=== PATIENT | male | born 1990 | race Caucasian/White ===

== ENCOUNTER 2017-10-16 17:51 | Emergency (ER) | payer OTHER ==
[~2017-10-16] VITALS: Ht 182.9 cm; Wt 90.7 kg
[~2017-10-16 17:51] MED LIST: FLEXERIL10 MG PO
--- NOTE | 2017-10-16 19:01 | ED GI/GU/ABDOMINAL COMPLAINT ---
See Addendum History of Present Illness General Chief Complaint: General Adult Stated Complaint: PER PT ?STOMACH BUG Source: patient, family Exam Limitations: no limitations Vital Signs & Intake/Output Vital Signs & Intake/Output Vital Signs Date Time Temp Pulse Resp B/P B/P Pulse O2 O2 Flow FiO2 Mean Ox Delivery Rate 10/16 2040 102.6 10/16 2040 102.6 10/16 2029 102.6 113 17 139/67 99 Room Air 10/16 1914 Room Air 10/16 1906 98.7 112 19 128/67 96 Room Air Allergies Coded Allergies: NO KNOWN ALLERGIES (NKDA) (01/31/11) Triage Note: PER PT VOMITTED AND DIARHHEA EVERY FEW MINUTES SINCE 1000 FEELS WEAK, NO FEVER NO COUGH NO SORE THROAT Triage Nurses Notes Reviewed? yes Onset: Abrupt Duration: hour(s):, intermittent Timing: recent history Quality/Severity: moderate Location: generalized abdomen Radiation: no radiation No Modifying Factors: none HPI: 27-year-old male comes into the emergency room with complaints of nausea vomiting and diarrhea that has been going on since this morning. Started with vomiting. Patient has had multiple episodes of diarrhea. Some cramping abdominal pain. Comes in for further evaluation. Denies any fever chills cough. Denies any other substance symptoms. (Edgar Flynn) Reconcile Medications CYCLOBENZAPRINE HCL (Flexeril) 10 MG TABLET 1 TAB PO QHS PRN BREAKTHROUGH PAIN Dicyclomine Hydrochloride (Bentyl) 10 MG CAPSULE 1-2 CAP PO TID pain Ondansetron (Zofran Odt) 4 MG TAB.RAPDIS 1 TAB SL TID nausea (Reginaldo CHAVEZ,William Hurtado) Past History Travel History Traveled to [place] past 21 day No Medical History Any Pertinent Medical History? see below for history Neurological: NONE EENT: NONE Cardiovascular: NONE Respiratory: NONE Gastrointestinal: NONE Hepatic: NONE Renal: NONE Musculoskeletal: NONE Psychiatric: NONE Endocrine: NONE Surgical History Surgical History: No abdominal surgeries Psychosocial History What is your primary language Micronesian Tobacco Use: Never used Family History Hx Contributory? No (Edgar Flynn) Review of Systems Review of Systems Constitutional: Reports: see HPI. EENTM: Reports: no symptoms. Respiratory: Reports: no symptoms. Cardiovascular: Reports: no symptoms. GI: Reports: see HPI. Genitourinary: Reports: no symptoms. Musculoskeletal: Reports: no symptoms. Skin: Reports: no symptoms. Neurological/Psychological: Reports: no symptoms. Hematologic/Endocrine: Reports: no symptoms. Immunologic/Allergic: Reports: no symptoms. All Other Systems: Reviewed and Negative (Edgar Flynn) Physical Exam Physical Exam General Appearance: well developed/nourished, no apparent distress, alert, awake Head: atraumatic Eyes: Bilateral: normal appearance. Ears, Nose, Throat, Mouth: hearing grossly normal, moist mucous membrane Neck: normal inspection Respiratory: no respiratory distress Cardiovascular: regular rate/rhythm Gastrointestinal: soft, tenderness (mild), no guarding, no rebound tenderness Back: normal inspection Extremities: normal range of motion Neurologic/Psych: awake, alert, oriented x 3, normal gait Skin: intact, normal color Core Measures ACS in differential dx? No Sepsis Present: No Sepsis Focused Exam Completed? No (Edgar Flynn) Progress Differential Diagnosis: appendicitis, bowel obstruction, diverticulitis, pancreatitis, SBO, gastroenteritis, influenza Plan of Care: Orders Procedure Date/time Status RAPID VIRAL INFLUENZA A 10/16 1899 Complete LIPASE 10/16 1899 Complete COMPREHENSIVE METABOLIC PANEL 10/16 1899 Complete CBC WITHOUT DIFFERENTIAL 10/16 1899 Complete Laboratory Tests 10/16/171924: Anion Gap 21 H, Estimated GFR > 60, BUN/Creatinine Ratio 18.2, Glucose 159 H, Calcium 9.5, Total Bilirubin 0.7, AST 29, ALT 41, Alkaline Phosphatase 59, Total Protein 7.8, Albumin 5.0, Globulin 2.8, Albumin/Globulin Ratio 1.8, Lipase 27, CBC w Diff MAN DIFF ORDERED, RBC 5.76, MCV 82.4, MCH 27.4, RDW 12.6, MPV 9.8, Gran % 93.9 H, Lymphocytes % 2.0 L, Monocytes % 3.9, Eosinophils % 0.1, Basophils % 0.1, Absolute Granulocytes 10.3 H, Segmented Neutrophils 80 H, Band Neutrophils 14 H, Absolute Lymphocytes 0.2 L, Lymphocytes 2 L, Monocytes 4, Absolute Monocytes 0.4, Absolute Eosinophils 0, Absolute Basophils 0, Platelet Estimate ADEQUATE, Normocytic RBCs VERIFIED, Normochromic RBCs VERIFIED , PUBS MCHC 33.3 Microbiology 10/16 1924 NASOPHARYN: Influenza Virus A & B Rapid Smear - COMP Initial ED EKG: none (Edgar Flynn) Departure Departure Disposition: HOME OR SELF CARE Condition: Stable Clinical Impression Primary Impression: Gastroenteritis Referrals: Adrián CHAVEZ,Evelio Reese (PCP/Family) Additional Instructions: Take Bentyl and Zofran as prescribed. Follow-up with primary care doctor symptoms now resolved. Rest. Drink plenty of fluids. Please go over all results of today's visit with your primary care doctor. Contact your primary care doctor to let them know you were here in the emergency room. There may be nonspecific findings which may not be related to your visit today here in the emergency room but may require further evaluation and chronic monitoring by your primary care doctor. If you had a laceration today the chance of foreign body always remains. You should follow-up with your primary care doctor for recheck in 3-5 days for a wound check. If you had an x-ray done there is a chance that a fracture could have been missed on initial read and you should follow-up with your primary care doctor for repeat x-rays if symptoms persist. If your blood pressure was elevated here in the emergency room please have rechecked by [facility] primary care doctor within the next 48. If you were prescribed a narcotic here in the emergency room or any type of controlled substances you're not allowed to drive while taking this medication or operate any type of heavy machinery. Narcotics can make you feel lightheaded dizziness nausea and can cause constipation. You may need to orange picking supervisor a stool softener. Thank you for choosing [facility] emergency room. Please return to the emergency room immediately if you have any other concerns worsening of symptoms. Departure Forms: Customer Survey General Discharge Information Comments 10/16/2017 8:19:43 PM Symptoms are most consistent with gastroenteritis which is a viral illness. Drink plenty of fluids. Rest. Return if any other concerns. (Edgar Flynn) Departure Prescriptions: Current Visit Scripts Ondansetron (Zofran Odt) 1 TAB SL TID #10 TAB Dicyclomine Hydrochloride (Bentyl) 1-2 CAP PO TID #30 CAP PA/BUSINESS MANAGER [employer] Co-Sign Statement Statement: ED Attending supervision documentation- [] I saw and evaluated the patient. I have also reviewed all the pertinent lab results and diagnostic results. I agree with the findings and the plan of care as documented in the PA's/BUSINESS MANAGER [employer]'s documentation. [x] I have reviewed the ED Record and agree with the PA's/BUSINESS MANAGER [employer]'s documentation. [] Additions or exceptions (if any) to the PAs/BUSINESS MANAGER [employer]'s note and plan are summarized below: [] (Reginaldo CHAVEZ,William Hurtado)
[2017-10-16 19:43] LABS: ABSOLUTE BASOPHIL COUNT 0 /CUMM (0.0-0.2); ABSOLUTE EOSINOPHIL COUNT 0 /CUMM (0.0-0.7); ABSOLUTE GRANULOCYTE CT 10.3 /CUMM (1.4-6.5); ABSOLUTE LYMPH COUNT 0.2 /CUMM (1.2-3.4); ABSOLUTE MONOCYTE COUNT 0.4 /CUMM (0.10-0.60); BASOPHIL % 0.1 % (0.0-2.0); EOSINOPHIL % 0.1 % (0-5); HEMATOCRIT 47.5 % (42-52); MEAN CORPUSCULAR HGB 27.4 PG (27.0-31.0); MEAN CORPUSCULAR HGB CONC 33.3 G/DL (33.0-37.0); MEAN CORPUSCULAR VOLUME 82.4 FL (80.0-94.0); MEAN PLATELET VOLUME 9.8 FL (7.4-10.4); PLATELET COUNT 225 /CUMM (130-400); RBC DISTRIBUTION WIDTH 12.6 % (11.5-14.5); RED BLOOD CELL CT 5.76 /CUMM (4.70-6.10)
[2017-10-16 19:44] LABS: GRANULOCYTE % 93.9 % (42.2-75.2)
[2017-10-16] MEDS ORDERED: BENTYL10 M1 PO (20:20)
[2017-10-16] MEDS ORDERED: ZOFRAN ODT4 M1 SL (20:20)
[2017-10-16 20:30] VITALS: BP 139/67
== END 2017-10-16 20:46 ==
LOC: ERH 17:51
PROVIDERS: Physician Assistant Medical
DX: K52.9 Noninfective gastroenteritis and colitis, unspecified (principal)
CPT/HCPCS: 87804; 87804-59